=== PATIENT | female | born 1975 | race Two or more races ===

== ENCOUNTER 2017-03-09 22:22 | Emergency (ER) | payer SELFPAY ==
--- NOTE | 2017-03-09 22:42 | ER Document Report ---
ED Medical Screen (RME) - General Chief Complaint: Possible Overdose Stated Complaint: POSDIBLE OVERDOSE Time Seen by Provider: 03/09/17 22:40 Mode of Arrival: Ambulatory Information source: Patient Notes: 41-year-old female presents to ED for possible drug overdose. She is on Ambien Tylenol PM Prozac and Valium. She just refilled all of her prescriptions today. Her boyfriend who is also her boss states that he she had been out of many of her medicine since Thursday and he just found her to days that she was out of her so he took her and had all of her prescriptions refilled this afternoon and then he found her in the living room with her bottles around her. He states he notices some Ambien on the floor in the living room. Patient is very confused and stumbling. I have greeted and performed a rapid initial assessment of this patient. A comprehensive ED assessment and evaluation of the patient, analysis of test results and completion of medical decision making process will be conducted by an additional ED providers. TRAVEL OUTSIDE OF THE [place] IN LAST 30 DAYS: No - Related Data Allergies/Adverse Reactions: No Known Allergies Allergy (Verified 04/14/16 16:30) Past Medical History Renal/ Medical History: Denies: Hx Peritoneal Dialysis Malignancy Medical History: Reports: Hx Breast Cancer Psychiatric Medical History: Reports: Hx Bipolar Disorder, Hx Depression, Hx Post Traumatic Stress Disorder, Hx Schizophrenia Past Surgical History: Reports: Hx Breast Surgery - mastectomy, Hx Tubal Ligation - Immunizations Hx Diphtheria, Pertussis, Tetanus Vaccination: Yes Physical Exam - Vital signs Vitals: Temp Pulse Resp BP Pulse Ox 98.4 F 80 18 108/76 98 03/09/17 22:28 03/09/17 22:28 03/09/17 22:28 03/09/17 22:28 03/09/17 22:28 Course - Vital Signs Vital signs: Temp Pulse Resp BP Pulse Ox 98.4 F 80 18 108/76 98 03/09/17 22:28 03/09/17 22:28 03/09/17 22:28 03/09/17 22:28 03/09/17 22:28
[2017-03-09 23:28] LABS: ABSOLUTE BASOPHILS # (AUTO) 0.1 10^3/uL (0.0-0.2); ABSOLUTE EOSINOPHILS # (AUTO) 0.4 10^3/uL (0.0-0.6); ABSOLUTE LYMPHOCYTES (AUTO) 3.2 10^3/uL (0.5-4.7); ABSOLUTE MONOCYTES (AUTO) 0.5 10^3/uL (0.1-1.4); ABSOLUTE NEUT (AUTO) 3.1 10^3/uL (1.7-8.2); BASOPHILS % (AUTO) 0.9 % (0-2); EOSINOPHILS % (AUTO) 5.4 % (0-6); HEMOGLOBIN 13.5 g/dL (12.0-15.5); HGB HCT DIFFERENCE 1.5; LYMPHOCYTES % (AUTO) 44.1 % (13-45); MEAN CORPUSCULAR HGB CONC 34.6 g/dL (32.0-36.0); MEAN CORPUSCULAR VOLUME 101 fl (80-97); MONOCYTES % (AUTO) 7.1 % (3-13); RED BLOOD COUNT 3.86 10^6/uL (3.72-5.28); RED CELL DISTRIBUTION WIDTH 13.2 % (11.5-14.0); SEGMENTED NEUTROPHILS % (AUTO) 42.5 % (42-78); WHITE BLOOD COUNT 7.2 10^3/uL (4.0-10.5)
[2017-03-09 23:40] LABS: ALANINE AMINOTRANSFERASE 39 U/L (9-52); ALBUMIN 4.9 g/dL (3.5-5.0); ALCOHOL 94 mg/dL (NONE DETECTED); ALKALINE PHOSPHATASE 48 U/L (38-126); ANION GAP 16 (5-19); ASPARTATE AMINO TRANSFERASE 25 U/L (14-36); BILIRUBIN,DIRECT 0.3 mg/dL (0.0-0.4); BLOOD UREA NITROGEN 8 mg/dL (7-20); CALCIUM 10.6 mg/dL (8.4-10.2); CARBON DIOXIDE 26 mmol/L (22-30); CHLORIDE 103 mmol/L (98-107); CREATININE RESULT 0.67 mg/dL (0.52-1.25); GLUCOSE 77 mg/dL (75-110); POTASSIUM 4.5 mmol/L (3.6-5.0); SODIUM 144.6 mmol/L (137-145)
[2017-03-09 23:46] LABS: APPEARANCE,URINE CLEAR; BILIRUBIN,URINE NEGATIVE (NEGATIVE); GLUCOSE, URINE NEGATIVE (NEGATIVE); KETONES,URINE NEGATIVE (NEGATIVE); LEUKOCYTE ESTERASE,URINE NEGATIVE (NEGATIVE); NITRITE,URINE NEGATIVE (NEGATIVE); PROTEIN,URINE NEGATIVE (NEGATIVE); URINE SPECIFIC GRAVITY 1.001; UROBILINOGEN,URINE NEGATIVE mg/dL (<2.0)
[2017-03-10 00:03] LABS: URINE BARBITURATES SCREEN NEGATIVE; URINE METHADONE SCREEN NEGATIVE; URINE OPIATES LOW NEGATIVE; URINE PHENCYCLIDINE SCREEN NEGATIVE
--- NOTE | 2017-03-10 01:11 | ER Document Report ---
ED General - General Chief Complaint: Possible Overdose Stated Complaint: POSDIBLE OVERDOSE Time Seen by Provider: 03/09/17 22:40 Mode of Arrival: Ambulatory Notes: 41-year-old female with significant psychiatric history presents after her boyfriend found her quite confused. This was acute this afternoon. She had just filled a bunch of her psychiatric medicine and states she took at least 5 or 6 pills "to catch up." These included an SSRI, Valium Tylenol PM. She denies suicidal ideation at this time. TRAVEL OUTSIDE OF THE [place] IN LAST 30 DAYS: No - Related Data Allergies/Adverse Reactions: No Known Allergies Allergy (Verified 04/14/16 16:30) Past Medical History - General Information source: Patient - Social History Smoking Status: Current Every Day Smoker Smoking Education Provided: Yes - 4 mins Family History: Reviewed & Not Pertinent Patient has suicidal ideation: No Patient has homicidal ideation: No Renal/ Medical History: Denies: Hx Peritoneal Dialysis Malignancy Medical History: Reports: Hx Breast Cancer Psychiatric Medical History: Reports: Hx Bipolar Disorder, Hx Depression, Hx Post Traumatic Stress Disorder, Hx Schizophrenia Past Surgical History: Reports: Hx Breast Surgery - mastectomy, Hx Tubal Ligation - Immunizations Hx Diphtheria, Pertussis, Tetanus Vaccination: Yes Hx Pneumococcal Vaccination: 06/01/13 Review of Systems - Review of Systems Notes: REVIEW OF SYSTEMS GEN: Denies fever, chills, weight loss ENT: Denies sore throat, nasal discharge, ear pain EYES: Denies blurry vision, eye pain, discharge CV: Denies chest pain, palpitations, edema RESP: Denies cough, shortness of breath, wheezing GI: Denies abdominal pain, nausea, vomiting, diarrhea MSK: Denies joint pain/swelling, edema, SKIN: Denies rash, skin lesions LYMPH: Denies swollen glands/lymph nodes NEURO: The penis and confusion PSYCH: Denies depression, suicidal or homicidal ideation PHYSICAL EXAMINATION General: No acute distress, well-nourished Head: Atraumatic, normocephalic ENT: Mouth normal, oropharynx moist, no exudates or tonsillar enlargement Eyes: Conjunctiva normal, pupils equal, lids normal Neck: No JVD, supple, no guarding CVS: Normal rate, regular rhythm, no murmurs Resp: No resp distress, equal and normal breath sounds bilaterally GI: Nondistended, soft, no tenderness to palpation, no rebound or guarding Ext: No deformities, no edema, normal range of motion in upper and lower ext Back: No CVA or midline TTP Skin: No rash, warm Lymphatic: No lymphadeopathy noted Neuro: sleepy but answering questions. Normal gait. Normal strength in all 4 extremity's. Face is symmetric.. Physical Exam - Vital signs Vitals: Temp Pulse Resp BP Pulse Ox 98.4 F 80 18 108/76 98 03/09/17 22:28 03/09/17 22:28 03/09/17 22:28 03/09/17 22:28 03/09/17 22:28 Course - Re-evaluation Re-evalutation: 03/10/17 01:10 Patient presents after multidrug ingestion. She is well-appearing with good vital signs. Potential considerations include benzodiazepines although she does not appear to be frankly overdosing, Tylenol ingestion, SSRI toxicity. At this time I do not believe she needs charcoal based on the fact that she only took about 5 pills and that she is not exhibiting any severe symptoms. I do not suspect massive Tylenol ingestion. Will get Tylenol level aspirin level EKG and labs. [facility] Ber[facility]. Place an IVC paperwork for concern for suicidal ideation. 03/10/17 01:37 Labs are all negative. ECG does not show significant toxicity. Patient is slightly more alert now. Medically cleared for psychiatric evaluation. IVC paperwork has been placed. - Vital Signs Vital signs: Temp Pulse Resp BP Pulse Ox 98.4 F 80 18 108/76 98 03/09/17 22:28 03/09/17 22:28 03/09/17 22:28 03/09/17 22:28 03/09/17 22:28 - Laboratory Result Diagrams: 03/10/17 01:08 03/09/17 22:45 Laboratory results interpreted by me: 03/09/17 03/09/17 03/09/17 22:45 22:45 22:50 MCV 101 H MCH 35.0 H Seg Neutrophils % Lymphocytes % Eosinophils % Calcium 10.6 H Urine Blood LARGE H Salicylates < 1.0 L Acetaminophen < 10 L 03/10/17 01:08 MCV 101 H MCH 35.3 H Seg Neutrophils % 38.4 L Lymphocytes % 47.0 H Eosinophils % 6.4 H Calcium Urine Blood Salicylates Acetaminophen - EKG Interpretation by Ga EKG shows normal: Sinus rhythm Rate: Normal - No QT prolongation
[2017-03-10 01:18] LABS: ABSOLUTE BASOPHILS # (AUTO) 0.1 10^3/uL (0.0-0.2); ABSOLUTE EOSINOPHILS # (AUTO) 0.4 10^3/uL (0.0-0.6); ABSOLUTE LYMPHOCYTES (AUTO) 3.1 10^3/uL (0.5-4.7); ABSOLUTE MONOCYTES (AUTO) 0.5 10^3/uL (0.1-1.4); ABSOLUTE NEUT (AUTO) 2.6 10^3/uL (1.7-8.2); BASOPHILS % (AUTO) 1.3 % (0-2); EOSINOPHILS % (AUTO) 6.4 % (0-6); HEMATOCRIT 37.7 % (36.0-47.0); HEMOGLOBIN 13.2 g/dL (12.0-15.5); HGB HCT DIFFERENCE 1.9; MEAN CORPUSCULAR HEMOGLOBIN 35.3 pg (27.0-33.4); MEAN CORPUSCULAR HGB CONC 35.1 g/dL (32.0-36.0); MEAN CORPUSCULAR VOLUME 101 fl (80-97); MONOCYTES % (AUTO) 6.9 % (3-13); RED BLOOD COUNT 3.74 10^6/uL (3.72-5.28); SEGMENTED NEUTROPHILS % (AUTO) 38.4 % (42-78); WHITE BLOOD COUNT 6.7 10^3/uL (4.0-10.5)
[2017-03-10 01:36] LABS: ANION GAP 13 (5-19); BLOOD UREA NITROGEN 9 mg/dL (7-20); CALCIUM 10.1 mg/dL (8.4-10.2); CARBON DIOXIDE 27 mmol/L (22-30); CHLORIDE 104 mmol/L (98-107); CREATININE RESULT 0.66 mg/dL (0.52-1.25); GLUCOSE 79 mg/dL (75-110); POTASSIUM 4.7 mmol/L (3.6-5.0); SODIUM 144.3 mmol/L (137-145)
--- NOTE | 2017-03-10 08:12 | EKG REPORT ---
SEVERITY:- NORMAL ECG - SINUS RHYTHM : Confirmed by: Lefty Aquino MD 10-Mar-2017 08:11:32
--- NOTE | 2017-03-10 09:49 | ER Document Report ---
Doctor's Note Notes: 03/10/17 09:49 Patient has been seen and evaluated resting comfortably no acute distress. Laboratory values previous provider note and vital signs have been evaluated. Patient otherwise looks to be stable for disposition/transfer.
[2017-03-10 10:38] VITALS: BP 112/63
== END 2017-03-10 10:38 | disposition home or self-care (01) ==
LOC: ER 22:22
DX: T43.221A Poisoning by selective serotonin reuptake inhibitors, accidental (unintentional), initial encounter (principal); T42.4X1A Poisoning by benzodiazepines, accidental (unintentional), initial encounter; T39.1X1A Poisoning by 4-Aminophenol derivatives, accidental (unintentional), initial encounter; F33.0 Major depressive disorder, recurrent, mild; F17.200 Nicotine dependence, unspecified, uncomplicated; Z71.6 Tobacco abuse counseling; Z85.3 Personal history of malignant neoplasm of breast
CPT/HCPCS: 36415; 80048; 80053; 80307; 81001; 81025; 84703; 85025; 93005; 93010; 99285

== ENCOUNTER 2017-03-16 12:01 | Emergency (ER) | payer SELFPAY ==
[2017-03-16] MEDS ORDERED: TRAMADOL HCL 50 MG TABLET PO ONE (12:24)
--- NOTE | 2017-03-16 12:25 | ER Document Report ---
ED Medical Screen (RME) - General Chief Complaint: Fall Injury Stated Complaint: FALL, HEAD INJURY Time Seen by Provider: 03/16/17 12:23 Notes: Patient states she was on her way to the bathroom when she fell and landed on her right wrist and hit the back of her head. She states she did have loss of consciousness. She states that she had some discharge from her right ear afterwards. She also states that several minutes afterwards she had a nosebleed but denies any facial trauma states she only had the back of her head. TRAVEL OUTSIDE OF THE [place] IN LAST 30 DAYS: No - Related Data Allergies/Adverse Reactions: vicodan Allergy (Mild, Uncoded 03/16/17 12:04) Hives Past Medical History - Social History Chew tobacco use (# tins/day): No Frequency of alcohol use: Heavy Drug Abuse: None Renal/ Medical History: Denies: Hx Peritoneal Dialysis Malignancy Medical History: Reports: Hx Breast Cancer Psychiatric Medical History: Reports: Hx Bipolar Disorder, Hx Depression, Hx Post Traumatic Stress Disorder, Hx Schizophrenia Past Surgical History: Reports: Hx Breast Surgery - mastectomy, Hx Tubal Ligation - Immunizations Hx Diphtheria, Pertussis, Tetanus Vaccination: Yes Physical Exam - Vital signs Vitals: Temp Pulse Resp BP Pulse Ox 97.9 F 90 16 117/86 H 98 03/16/17 12:05 03/16/17 12:05 03/16/17 12:05 03/16/17 12:05 03/16/17 12:05 Course - Vital Signs Vital signs: Temp Pulse Resp BP Pulse Ox 97.9 F 90 16 117/86 H 98 03/16/17 12:05 03/16/17 12:05 03/16/17 12:05 03/16/17 12:05 03/16/17 12:05
[2017-03-16 13:38] LABS: ABSOLUTE BASOPHILS # (AUTO) 0.1 10^3/uL (0.0-0.2); ABSOLUTE EOSINOPHILS # (AUTO) 0.3 10^3/uL (0.0-0.6); ABSOLUTE LYMPHOCYTES (AUTO) 2.3 10^3/uL (0.5-4.7); ABSOLUTE MONOCYTES (AUTO) 0.6 10^3/uL (0.1-1.4); ABSOLUTE NEUT (AUTO) 2.9 10^3/uL (1.7-8.2); BASOPHILS % (AUTO) 1.2 % (0-2); EOSINOPHILS % (AUTO) 4.2 % (0-6); HEMATOCRIT 37.9 % (36.0-47.0); HGB HCT DIFFERENCE 1.1; LYMPHOCYTES % (AUTO) 37.8 % (13-45); MEAN CORPUSCULAR HEMOGLOBIN 34.8 pg (27.0-33.4); MEAN CORPUSCULAR HGB CONC 34.3 g/dL (32.0-36.0); MEAN CORPUSCULAR VOLUME 101 fl (80-97); MONOCYTES % (AUTO) 9.8 % (3-13); RED BLOOD COUNT 3.75 10^6/uL (3.72-5.28); RED CELL DISTRIBUTION WIDTH 13.1 % (11.5-14.0); WHITE BLOOD COUNT 6.2 10^3/uL (4.0-10.5)
[2017-03-16 13:59] LABS: ALANINE AMINOTRANSFERASE 26 U/L (9-52); ALBUMIN 4.4 g/dL (3.5-5.0); ALKALINE PHOSPHATASE 49 U/L (38-126); ANION GAP 14 (5-19); ASPARTATE AMINO TRANSFERASE 17 U/L (14-36); BILIRUBIN,DIRECT 0.3 mg/dL (0.0-0.4); BILIRUBIN,TOTAL 0.4 mg/dL (0.2-1.3); BLOOD UREA NITROGEN 16 mg/dL (7-20); CARBON DIOXIDE 22 mmol/L (22-30); CHLORIDE 105 mmol/L (98-107); CREATININE RESULT 0.76 mg/dL (0.52-1.25); GLUCOSE 89 mg/dL (75-110); POTASSIUM 4.2 mmol/L (3.6-5.0); SODIUM 140.8 mmol/L (137-145); TOTAL PROTEIN 7.1 g/dL (6.3-8.2)
--- NOTE | 2017-03-16 14:06 | RADIOLOGY REPORT (SQ) ---
EXAM DESCRIPTION: CT HEAD WITHOUT COMPLETED DATE/TIME: 03/16/2017 1:38 pm REASON FOR STUDY: fall/pain COMPARISON: 02/03/2016 TECHNIQUE: Axial images acquired through the brain without intravenous contrast. Images reviewed wi th bone, brain and subdural windows. Images stored on PACS. All CT scanners at this facility use dose modulation, iterative reconstruction, and/or weight based d osing when appropriate to reduce radiation dose to as low as reasonably achievable (ALARA). [facility]: Dose Right [facility]: CareDose [facility]: Dose Right [facility]: Teradose 4D [facility]: Smart Everlater RADIATION DOSE: Up-to-date CT equipment and radiation dose reduction techniques were employed. CTDIv ol: 64.6 mGy. DLP: 1163 mGy-cm. mGy. LIMITATIONS: None. FINDINGS: VENTRICLES: Normal size and contour. CEREBRUM: No masses. No hemorrhage. No midline shift. No evidence for acute infarction. Normal gra y/white matter differentiation. No areas of low density in the white matter. CEREBELLUM: No masses. No hemorrhage. No alteration of density. No evidence for acute infarction. EXTRAAXIAL SPACES: No fluid collections. No masses. ORBITS AND GLOBE: No intra- or extraconal masses. Normal contour of globe without masses. CALVARIUM: No fracture. PARANASAL SINUSES: No fluid or mucosal thickening. SOFT TISSUES: No mass or hematoma. OTHER: No other significant finding. IMPRESSION: NORMAL BRAIN CT WITHOUT CONTRAST. EVIDENCE OF ACUTE STROKE: NO. COMMENT: Quality ID # [id number]: Final reports with documentation of one or more dose reduction techniques (e.g., Automated exposure control, adjustment of the mA and/or kV according to patient size, use of iterative reconstruction technique) TECHNICAL DOCUMENTATION: JOB ID: [id number]- All Rights Reserved
--- NOTE | 2017-03-16 14:16 | RADIOLOGY REPORT (SQ) ---
EXAM DESCRIPTION: HAND RIGHT 3 VIEWS COMPLETED DATE/TIME: 03/16/2017 2:07 pm REASON FOR STUDY: fall/pain COMPARISON: 02/03/2016 EXAM PARAMETERS: NUMBER OF VIEWS: Three views. TECHNIQUE: AP, lateral and oblique radiographic images acquired of the right hand. LIMITATIONS: None. FINDINGS: MINERALIZATION: Normal. BONES: No acute fracture or dislocation. No worrisome bone lesions. JOINTS: No effusions. SOFT TISSUES: No soft tissue swelling. No foreign body. OTHER: No other significant finding. IMPRESSION: NEGATIVE STUDY OF THE RIGHT HAND. NO RADIOGRAPHIC EVIDENCE OF ACUTE INJURY. TECHNICAL DOCUMENTATION: JOB ID: [id number] [employer]- All Rights Reserved
--- NOTE | 2017-03-16 14:33 | RADIOLOGY REPORT (SQ) ---
EXAM DESCRIPTION: WRIST RIGHT 3 VIEWS COMPLETED DATE/TIME: 03/16/2017 2:24 pm REASON FOR STUDY: fall/pain COMPARISON: None. NUMBER OF VIEWS: Three views. TECHNIQUE: AP, lateral, and oblique radiographic images acquired of the right wrist. LIMITATIONS: None. FINDINGS: MINERALIZATION: Normal. BONES: No acute fracture or dislocation. No worrisome bone lesions. Normal alignment. SOFT TISSUES: There is questionably slight widening of the scapholunate interval OTHER: No other significant finding. IMPRESSION: Cannot exclude ligamentous injury in the scapholunate ligament because is suggested slig ht widening of the scapholunate interval. TECHNICAL DOCUMENTATION: JOB ID: [id number] [employer]- All Rights Reserved
--- NOTE | 2017-03-16 14:37 | ER Document Report ---
Doctor's Note Notes: 03/16/17 14:35 Was called to CAT scan after the code button was pressed later that the patient was having a possible seizure on the CAT scan table. Upon my entrance into the room patient was moaning shaking all 4 extremities at first patient and applied a painful stimulus to the center of her chest to which the patient reacted appropriately to morning and trying to brush my hand away. I explained to the patient that did not look like she was having a seizure that she could stop shaking so that we could proceed with CT scan no critical pathology seen upon my brief evaluation of the patient 03/16/17 14:36
[2017-03-16 14:44] LABS: ADD ON TESTING BLD IN LAB ACKNOWLEDGE
[2017-03-16 15:13] LABS: AMORPHOUS SEDIMENT,URINE TRACE /HPF; APPEARANCE,URINE CLOUDY; BILIRUBIN,URINE NEGATIVE (NEGATIVE); GLUCOSE, URINE NEGATIVE (NEGATIVE); KETONES,URINE NEGATIVE (NEGATIVE); LEUKOCYTE ESTERASE,URINE NEGATIVE (NEGATIVE); NITRITE,URINE NEGATIVE (NEGATIVE); PROTEIN,URINE NEGATIVE (NEGATIVE); URINE SPECIFIC GRAVITY 1.025; UROBILINOGEN,URINE NEGATIVE mg/dL (<2.0)
[2017-03-16 15:13] LABS: CREATINE KINASE 81 U/L (30-135)
--- NOTE | 2017-03-16 15:29 | ER Document Report ---
ED General - General Chief Complaint: Fall Injury Stated Complaint: FALL, HEAD INJURY Time Seen by Provider: 03/16/17 12:23 Mode of Arrival: Ambulatory Information source: Patient Notes: Patient states that she was at home and slipped on the floor landing on an outstretched wrist. Patient states that she rolled and hit the back of her head. Patient denies any loss of consciousness. Patient states that after the fall she went to lie down momentarily and then woke with a nosebleed. Patient states she also noticed some yellow discharge from her right ear. Patient complains of right-sided headache pain with photophobia and phonophobia. Patient denies any nausea or vomiting. Family states that patient while waiting in the emergency department has had 4 seizures while waiting, one in the triage area, one while getting labs, 1 while getting an EKG performed and 1 while in the CAT scan area. Patient denies any history of seizure, patient denies any family history of seizure, patient denies any change in medications or recreational drug use. TRAVEL OUTSIDE OF THE [place] IN LAST 30 DAYS: No - HPI Onset: This morning Quality of pain: Sharp Pain Level: 5 Associated symptoms: Headache. denies: Chest pain, Nonproductive cough, Productive cough, Earache, Fever, Nausea, Vomiting Exacerbated by: Denies Relieved by: Denies Similar symptoms previously: No Recently seen / treated by doctor: Yes - Related Data Allergies/Adverse Reactions: vicodan Allergy (Mild, Uncoded 03/16/17 12:04) Hives Past Medical History - General Information source: Patient, Friend - Social History Smoking Status: Current Every Day Smoker Chew tobacco use (# tins/day): No Frequency of alcohol use: Heavy Drug Abuse: None Occupation: Farming Lives with: Spouse/Significant other Family History: Reviewed & Not Pertinent Patient has suicidal ideation: No Renal/ Medical History: Denies: Hx Peritoneal Dialysis Malignancy Medical History: Reports: Hx Breast Cancer Psychiatric Medical History: Reports: Hx Bipolar Disorder, Hx Depression, Hx Post Traumatic Stress Disorder, Hx Schizophrenia Past Surgical History: Reports: Hx Breast Surgery - mastectomy, Hx Tubal Ligation - Immunizations Hx Diphtheria, Pertussis, Tetanus Vaccination: Yes Hx Pneumococcal Vaccination: 06/01/13 Review of Systems - Review of Systems Constitutional: No symptoms reported. denies: Fever, Recent illness EENT: No symptoms reported Cardiovascular: No symptoms reported. denies: Chest pain Respiratory: No symptoms reported. denies: Cough, Short of breath Gastrointestinal: No symptoms reported. denies: Nausea, Vomiting Genitourinary: No symptoms reported Female Genitourinary: No symptoms reported Musculoskeletal: Joint pain. denies: Back pain Skin: No symptoms reported Hematologic/Lymphatic: No symptoms reported Neurological/Psychological: Seizure - Possible seizure, shaking activity, Headaches Physical Exam - Vital signs Vitals: Temp Pulse Resp BP Pulse Ox 97.9 F 90 16 117/86 H 98 03/16/17 12:05 03/16/17 12:05 03/16/17 12:05 03/16/17 12:05 03/16/17 12:05 - General General appearance: Appears well, Alert In distress: None - HEENT Head: Normocephalic, Atraumatic, Tenderness - right parietal scalp. No: Abrasions, Crawford's sign, Ecchymosis, [place]'s eyes Eyes: Normal Conjunctiva: Normal Extraocular movements intact: Yes Eyelashes: Normal Pupils: PERRL Ears: Normal External canal: Normal. No: Blood in canal Tympanic membrane: Normal. No: Hemotympanum, Serous effusion Nasal: Normal. No: Bloody discharge, Epistaxis, Septal hematoma, Clear rhinorrhea Mouth/Lips: Normal Mucous membranes: Normal Pharynx: Normal Neck: Normal, Supple. No: Lymphadenopathy - Respiratory Respiratory status: No respiratory distress Chest status: Nontender Breath sounds: Normal. No: Rales, Rhonchi, Stridor, Wheezing Chest palpation: Normal - Cardiovascular Rhythm: Regular Heart sounds: S1 appreciated, S2 appreciated Murmur: No - Back Back: Normal, Nontender. No: Vertebra tenderness - Extremities General upper extremity: Tender - r wrist, r 3,4 5 fingers, Normal color, Normal ROM, Normal strength, Normal temperature. No: Edema Wrist: Tender - Right wrist tenderness over distal radius, no swelling, no deformity, Limited ROM - Secondary to tenderness. No: Deformity, Dislocation, Ecchymosis Hand: Tender - Generalized tenderness to right third fourth and fifth fingers, tenderness about right fourth finger PIP joint, no deformity or dislocation, no tendon deficit. No: Deformity, Dislocation, Ecchymosis, Instability, Laceration , Swelling, Tendon deficit - Neurological Neuro grossly intact: Yes Cognition: Normal [place]se Coma Scale Eye Opening: Spontaneous [place]se Coma Scale Verbal: Oriented [place] Coma Scale Motor: Obeys Commands [place] Coma Scale Total: 15 - Psychological Associated symptoms: Normal affect, Normal mood - Skin Skin Temperature: Warm Skin Moisture: Dry Skin Color: Normal Course - Re-evaluation Re-evalutation: 03/16/17 14:[address] Saenz regarding patient presentation and his reported witnessed of the patient's shaking episode. Does not feel that patient had symptoms consistent with a seizure. 03/16/17 15:[address] Kapoor regarding patient presentation. Dr. Kapoor did see patient while she was in CAT scan when she was reportedly having seizure- like activity. States that the patient had a shaking and moaning but did not have symptoms consistent with a seizure. Reviewed patient's diagnostic test results as well as her EKG. Advises having patient follow up with her psychiatrist as well as neurology for further evaluation. Advises against swimming or driving until patient is cleared by her doctor to do so. - Vital Signs Vital signs: Temp Pulse Resp BP Pulse Ox 99.4 F 72 16 122/74 98 03/16/17 16:10 03/16/17 16:10 03/16/17 16:10 03/16/17 16:10 03/16/17 16:10 - Laboratory Result Diagrams: 03/16/17 13:10 03/16/17 13:10 Laboratory results interpreted by me: 03/16/17 03/16/17 13:10 14:35 MCV 101 H MCH 34.8 H Urine Blood SMALL H 03/16/17 15:27 Labs- Entire Visit 03/16/17 03/16/17 03/16/17 13:10 13:10 13:10 WBC 6.2 RBC 3.75 Hgb 13.0 Hct 37.9 MCV 101 H MCH 34.8 H MCHC 34.3 RDW 13.1 Plt Count 361 Seg Neutrophils % 47.0 Lymphocytes % 37.8 Monocytes % 9.8 Eosinophils % 4.2 Basophils % 1.2 Absolute Neutrophils 2.9 Absolute Lymphocytes 2.3 Absolute Monocytes 0.6 Absolute Eosinophils 0.3 Absolute Basophils 0.1 Sodium 140.8 Potassium 4.2 Chloride 105 Carbon Dioxide 22 Anion Gap 14 BUN 16 Creatinine 0.76 Est GFR ( Amer) > 60 Est GFR (Non-Af Amer) > 60 Glucose 89 Calcium 10.0 Total Bilirubin 0.4 Direct Bilirubin 0.3 Indirect Bilirubin Not Reportable Neonat Total Bilirubin Not Reportable AST 17 ALT 26 Alkaline Phosphatase 49 Creatine Kinase 81 Total Protein 7.1 Albumin 4.4 Urine Color Urine Appearance Urine pH Ur Specific [place] Urine Protein Urine Glucose (UA) Urine Ketones Urine Blood Urine Nitrite Urine Bilirubin Urine Urobilinogen Ur Leukocyte Esterase Urine WBC (Auto) Urine RBC (Auto) Urine Bacteria (Auto) Squamous Epi Cells Auto Amorphous Sediment Auto Urine Ascorbic Acid Urine HCG, Qual 03/16/17 14:35 WBC RBC Hgb Hct MCV MCH MCHC RDW Plt Count Seg Neutrophils % Lymphocytes % Monocytes % Eosinophils % Basophils % Absolute Neutrophils Absolute Lymphocytes Absolute Monocytes Absolute Eosinophils Absolute Basophils Sodium Potassium Chloride Carbon Dioxide Anion Gap BUN Creatinine Est GFR ( Amer) Est GFR (Non-Af Amer) Glucose Calcium Total Bilirubin Direct Bilirubin Indirect Bilirubin Neonat Total Bilirubin AST ALT Alkaline Phosphatase Creatine Kinase Total Protein Albumin Urine Color YELLOW Urine Appearance CLOUDY Urine pH 6.0 Ur Specific [place] 1.025 Urine Protein NEGATIVE Urine Glucose (UA) NEGATIVE Urine Ketones NEGATIVE Urine Blood SMALL H Urine Nitrite NEGATIVE Urine Bilirubin NEGATIVE Urine Urobilinogen NEGATIVE Ur Leukocyte Esterase NEGATIVE Urine WBC (Auto) 0 Urine RBC (Auto) 10 Urine Bacteria (Auto) TRACE Squamous Epi Cells Auto 2 Amorphous Sediment Auto TRACE Urine Ascorbic Acid NEGATIVE Urine HCG, Qual NEGATIVE - Diagnostic Test Radiology reviewed: Image reviewed, Reports reviewed Discharge - Discharge Clinical Impression: Episode of shaking Right wrist sprain Qualifiers: Encounter type: initial encounter Qualified Code(s): S63.501A - Unspecified sprain of right wrist, initial encounter Sprain, finger Qualifiers: Encounter type: initial encounter Finger: ring finger Sprain of finger site: unspecified site Laterality: right Qualified Code(s): S63.614A - Unspecified sprain of right ring finger, initial encounter Head injury Qualifiers: Encounter type: initial encounter Qualified Code(s): S09.90XA - Unspecified injury of head, initial encounter Condition: Stable Disposition: HOME, SELF-CARE Instructions: Tong Taping (fingers) ([facility]), Head Injury Precautions ([facility]), Ice & Elevation ([facility]), Sprained Finger ([facility]), Wrist Sprain ([facility]), Temporary Splint ( [facility]) Additional Instructions: Return immediately for any new or worsening symptoms Followup with your primary care provider, call tomorrow to make a followup appointment Follow-up with a neurologist for further evaluation of possible seizure like activity Follow-up with your mental health provider for recheck, call tomorrow for an appointment Do not drive, operate machinery, or swimming until cleared to do so by your primary doctor Follow-up with orthopedic doctor for further evaluation of wrist and finger injury Wear splint for the next 5 days and then remove, if still having pain follow-up with orthopedic Prescriptions: Naproxen [Naprosyn 250 Nmg Tablet] 1 tab PO BID #14 tablet Forms: Return to Work Referrals: LETITIA PADILLA PA-C [NO LOCAL MD] - Follow up tomorrow AMANDA DELGADILLO MD [ACTIVE STAFF] - Follow up tomorrow [facility] [Provider Group] - Follow up in 3-5 days
[2017-03-16 16:11] VITALS: BP 122/74
--- NOTE | 2017-03-16 18:32 | EKG REPORT ---
SEVERITY:- NORMAL ECG - SINUS RHYTHM : Confirmed by: Selvin Reagan 16-Mar-2017 18:32:11
== END 2017-03-16 16:11 | disposition home or self-care (01) ==
LOC: ER 12:01
DX: S63.501A Unspecified sprain of right wrist, initial encounter (principal); S63.614A Unspecified sprain of right ring finger, initial encounter; S09.90XA Unspecified injury of head, initial encounter; R25.1 Tremor, unspecified; R04.0 Epistaxis; H92.11 Otorrhea, right ear; R51 Headache; H53.149 Visual discomfort, unspecified; F17.200 Nicotine dependence, unspecified, uncomplicated; M25.531 Pain in right wrist; W01.0XXA Fall on same level from slipping, tripping and stumbling without subsequent striking against object, initial encounter; Y92.009 Unspecified place in unspecified non-institutional (private) residence as the place of occurrence of the external cause
CPT/HCPCS: 93005; 99284; 36415; 82550; 85025; 81025; 80053; 81001; 73130; 73110; 70450; 93010; L3908

== ENCOUNTER 2017-04-13 01:24 | Emergency (ER) | payer SELFPAY ==
[2017-04-13] MEDS ORDERED: ACETAMINOPHEN 325 MG TABLET PO ONE ×2 (02:17→02:37)
[2017-04-13] MEDS ORDERED: LIDOCAINE 1% INJ-PF (10 MG/ML) 30 ML SDV INJ ONE (02:17)
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
[2017-04-13] MEDS ORDERED: IBUPROFEN 800 MG TABLET PO ONE (02:26)
[2017-04-13] MEDS ORDERED: CEPHALEXIN 500 MG CAPSULE PO ONE (02:27)
--- NOTE | 2017-04-13 02:38 | RADIOLOGY REPORT (SQ) ---
EXAM DESCRIPTION: TIBIA FIBULA LEFT COMPLETED DATE/TIME: 04/13/2017 2:21 am REASON FOR STUDY: leg injury . Lacerations. COMPARISON: None. NUMBER OF VIEWS: Two views. TECHNIQUE: Two radiographic images acquired of the left tibia and fibula to include the knee and ank le in at least one projection. LIMITATIONS: None. FINDINGS: MINERALIZATION: Normal. BONES: No acute fracture or dislocation. SOFT TISSUES: Scattered small areas of subcutaneous emphysema in the soft tissues at the lower leg, p robably corresponding to patient's known lacerations. Multiple tiny radiopaque densities measuring u p to 1 mm are seen in the soft tissues at the posterior aspect of the mid lower leg. IMPRESSION: No radiographic evidence for acute fracture. Small areas of subcutaneous emphysema in the soft tissues at the left lower leg, probably correspondi ng to patient's known lacerations. Multiple tiny radiopaque densities in the soft tissues at the pos terior aspect of the mid lower leg, may represent foreign bodies. Please correlate with direct visua lization. TECHNICAL DOCUMENTATION: JOB ID: [id number] [employer]- All Rights Reserved
[2017-04-13 03:37] VITALS: BP 105/68
== END 2017-04-13 03:36 | disposition home or self-care (01) ==
LOC: ER 01:24
PROC: 0HQLXZZ Repair Left Lower Leg Skin, External Approach (ICD-10-PCS; principal; 2017-04-13)
DX: S81.812A Laceration without foreign body, left lower leg, initial encounter (principal); F17.210 Nicotine dependence, cigarettes, uncomplicated; W34.09XA Accidental discharge from other specified firearms, initial encounter; Y92.71 Barn as the place of occurrence of the external cause
CPT/HCPCS: 99406; 99283; 73590; 12001; J3490